=== PATIENT | male | born 1995 | race African-American/Black ===

== ENCOUNTER 2016-11-29 17:31 | Emergency (ER) | payer MEDICAID ==
[~2016-11-29] VITALS: Ht 175.3 cm; Wt 72.6 kg
[2016-11-29 17:38] VITALS: BP 118/75; PULSE 93; RESP 16; TEMP 98; O2SAT 98
--- NOTE | 2016-11-29 17:43 | NUR ---
Patient triaged and placed in waiting room. VSS Patient appears in no acute distress at this time. Accompanied by MOM, awaiting available bed, and MD notified of need for MSE.
--- NOTE | 2016-11-29 20:05 | NUR ---
Patient to ER H1 for evaluation.
--- NOTE | 2016-11-29 20:05 | NUR ---
Note gal in ED - 11/29/16 at 2104 by [email or web address] Patient to ER H1 for evaluation. Side rails up.
[2016-11-29] MEDS ORDERED: cefTRIAXone 1 GM VIAL IM ONE (20:45)
[2016-11-29 20:53] VITALS: BP 117/78; PULSE 90; RESP 17; TEMP 98; O2SAT 98
--- NOTE | 2016-11-29 20:53 | NUR ---
Patient given written and verbal discharge instructions by SUKUMAR Mills and verbalizes understanding. SUKUMAR Mills discussed with patient the results and treatment provided. ID arm band removed. Rx of Levaquin 500 mg given. Patient educated on pain management and to follow up with PMD. Pain Scale 5/10. Opportunity for questions provided and answered.
== END 2016-11-29 20:53 | disposition home or self-care (01) ==
LOC: SED 17:31
DX: J20.9 Acute bronchitis, unspecified (principal); T88.8XXA Other specified complications of surgical and medical care, not elsewhere classified, initial encounter
CPT/HCPCS: 71010; 99283

== ENCOUNTER 2017-08-18 09:24 | Emergency (ER) | payer MEDICAID, MEDICARE ==
[~2017-08-18] VITALS: Ht 172.7 cm; Wt 70.3 kg
[2017-08-18 09:30] VITALS: BP_SYST 100
[2017-08-18] MEDS ORDERED: NACL 0.9% 1,000 ML IV ONE (10:00)
[2017-08-18 10:03] LABS: BASOPHILS # (AUTO) 0.1 K/uL (0.0-0.2); BASOPHILS % (AUTO) 1.2 % (0.0-2.0); EOSINOPHILS # (AUTO) 0.4 K/uL (0.0-0.4); EOSINOPHILS % (AUTO) 5.7 % (0.0-4.0); HEMATOCRIT 45.8 % (36-54); HEMOGLOBIN 14.8 g/dL (14.0-18.0); LYMPHOCYTES # (AUTO) 1.8 K/uL (1.0-5.5); LYMPHOCYTES % (AUTO) 23.5 % (20.5-51.5); MEAN CORPUSCULAR HEMOGLOBIN 29 pg (27-31); MEAN CORPUSCULAR HGB CONC 32 % (32-36); MEAN CORPUSCULAR VOLUME 89 fL (79.0-98.0); MONOCYTES # (AUTO) 0.4 K/uL (0.0-1.0); MONOCYTES % (AUTO) 5.8 % (1.7-9.3); NEUTROPHILS % (AUTO) 63.8 % (40.0-70.0); PLATELET COUNT (AUTO) 273 K/uL (130-430); RED BLOOD CELL COUNT(AUTO) 5.17 MIL/uL (4.2-6.2); RED CELL DISTRIBUTION WIDTH 12.2 % (9.0-15.0); WHITE BLOOD COUNT (AUTO) 7.7 K/uL (4.8-10.8)
[2017-08-18 10:09] LABS: BILIRUBIN,URINE NEGATIVE (NEGATIVE); BLOOD, URINE NEGATIVE (NEGATIVE); CLARITY/URINE CLEAR (CLEAR); COLOR,URINE YELLOW (YELLOW); GLUCOSE,URINE NEGATIVE (NEGATIVE); KETONES,URINE NEGATIVE (NEGATIVE); LEUKOCYTE ESTERASE ,URINE NEGATIVE (NEGATIVE); NITRITE, URINE NEGATIVE (NEGATIVE); PH,URINE 5.5 (5.0-8.0); PROTEIN URINE NEGATIVE (NEGATIVE); UROBILINOGEN,URINE 0.2 (0.2-1.0)
[2017-08-18 10:16] LABS: ANION GAP 7 (5-15); CALCIUM 9.2 mg/dL (8.4-11.0); CHLORIDE 100 mmol/L (98-107); CREATININE 1.07 mg/dL (0.55-1.30); GFR AFRICAN AMERICAN 112 mL/min (>90); GLUCOSE 72 mg/dL (70-99); POTASSIUM 3.9 mmol/L (3.5-5.1); SODIUM SERUM 137 mmol/L (136-145); UREA NITROGEN, BLOOD 21 mg/dL (8-21)
[2017-08-18 10:20] LABS: ALANINE AMINOTRANSFERASE 37 U/L (12-78); ALBUMIN 4.4 g/dL (3.4-4.8); ALCOHOL, BLOOD < 3 mg/dL (<10); ASPARTATE AMINOTRANSFERASE 40 U/L (10-37); TOTAL BILIRUBIN 1.1 mg/dL (0.0-1.0)
[2017-08-18 10:33] LABS: CANNABINOID, URINE POSITIVE (NEG <=50)
[2017-08-18 10:34] LABS: COCAINE, URINE POSITIVE (NEG <=150); METHAMPHETAMINES SCREEN,URINE POSITIVE (NEG <=500); URINE AMPHETAMINE POSITIVE (NEG <=500)
[2017-08-18 10:35] LABS: BARBITURATE, URINE NEGATIVE (NEG <=200); BENZODIAZEPINE, URINE NEGATIVE (NEG <=150); OPIATE, URINE NEGATIVE (NEG <=100); PHENCYCLIDINE SCREEN,URINE NEGATIVE (NEG <=25); UR TRICYCLIC ANTIDEPRESSANTS NEGATIVE (NEG <=300); URINE METHADONE NEGATIVE (NEG <=200); URINE OXYCODONE SCREEN NEGATIVE (NEG <=100); URINE PROPOXYPHENE SCREEN NEGATIVE (NEG <=300)
[2017-08-18 11:14] VITALS: BP_SYST 107
== END 2017-08-18 11:14 | disposition home or self-care (01) ==
LOC: SED 09:24
DX: R07.89 Other chest pain (principal); E86.0 Dehydration
CPT/HCPCS: 36415; 71020; 80053; 80307; 81003; 84484; 85025; 93005; 96360; 99285; G0482; J7030

== ENCOUNTER 2018-08-18 07:24 | Emergency (ER) | payer MEDICARE ==
[~2018-08-18] VITALS: Ht 175.3 cm; Wt 77.1 kg
[2018-08-18 07:31] VITALS: BP_SYST 136
[2018-08-18 08:11] VITALS: BP_SYST 130
== END 2018-08-18 08:11 | disposition home or self-care (01) ==
LOC: SED 07:24
DX: H02.842 Edema of right lower eyelid (principal)
CPT/HCPCS: 99283

== ENCOUNTER 2019-09-01 09:23 | Emergency (ER) | payer MEDICAID ==
[~2019-09-01] VITALS: Ht 172.7 cm; Wt 90.7 kg
[2019-09-01 09:30] VITALS: BP_SYST 119
--- NOTE | 2019-09-01 09:30 | NUR ---
Pt ambulated to bed 7
--- NOTE | 2019-09-01 09:39 | NUR ---
ER at bedside examining patient.
--- NOTE | 2019-09-01 09:39 | NUR ---
Patent arrived in the ED c/o bodyaches, stuffy nose, diarrhea, blurry vision and cough that started a couple of days ago - Not taking any OTC meds to relieve the symptoms. Patient is alert and oriented x4, respirations even and unlabored, speaking in full sentences, ambulating with a steady gait. VS WNL, pain level 7/10. Informed of the wait time. Instructed to notify ED staff for any changes in condition or worsening of symptoms while waiting to be seen by the provider. Patient verbalized understanding.
[2019-09-01] MEDS ORDERED: KETOROLAC TROMETHAMINE 60 MG/2 ML VIAL IM ONE (09:45)
--- NOTE | 2019-09-01 09:49 | NUR ---
Administered Toradol 60mg IM in left ventrogluteal as ordered by Dr. Bryant. Patient tolerated the medication well.
--- NOTE | 2019-09-01 10:40 | NUR ---
Patient given written and verbal discharge instructions and verbalizes understanding. ER MD discussed with patient the results and treatment provided. Patient in stable condition. ID arm band removed. Rx of Cephacol, Zyrtec and Tamiflu given. Patient educated on pain management and to follow up with PMD. Pain Scale 3/10. Opportunity for questions provided and answered. Medication side effect fact sheet provided.
[2019-09-01 10:41] VITALS: BP_SYST 119
== END 2019-09-01 10:40 | disposition home or self-care (01) ==
LOC: SED 09:23
DX: B34.9 Viral infection, unspecified (principal)
CPT/HCPCS: 96372; 99283; J1885

== ENCOUNTER 2019-09-15 07:57 | Emergency (ER) | payer MEDICAID ==
[~2019-09-15] VITALS: Ht 175.3 cm; Wt 63.5 kg
--- NOTE | 2019-09-15 08:02 | NUR ---
Patient to ER bed 07 to gown for evaluation. Side rails up.
[2019-09-15 08:08] VITALS: BP_SYST 138
--- NOTE | 2019-09-15 08:10 | NUR ---
ER Dr. Ordoñez at bedside examining patient.
[2019-09-15] MEDS ORDERED: IBUPROFEN 800 MG TABLET PO ONE (08:30)
--- NOTE | 2019-09-15 08:52 | NUR ---
Patient is awake, alert, and oriented x4. Patient states he was drinking last night, jumped down some stairs, landed on his feet, his right foot started hurting. Patient presents with right heel pain 8/10, made worse when trying to ambulate.
[2019-09-15 09:55] VITALS: BP_SYST 138
--- NOTE | 2019-09-15 09:57 | NUR ---
Patient given written and verbal discharge instructions and verbalizes understanding. ER MD discussed with patient the results and treatment provided. Patient in stable condition. ID arm band removed. Rx of Tylenol with codeine and Ibuprofen given. Patient educated on pain management and to follow up with PMD. Pain Scale 2/10 tolerable for patient . Opportunity for questions provided and answered. Medication side effect fact sheet provided.
== END 2019-09-15 09:55 | disposition home or self-care (01) ==
LOC: SED 07:57
DX: S93.601A Unspecified sprain of right foot, initial encounter (principal); X50.1XXA Overexertion from prolonged static or awkward postures, initial encounter; Y93.39 Activity, other involving climbing, rappelling and jumping off; Y92.59 Other trade areas as the place of occurrence of the external cause; Y99.8 Other external cause status
CPT/HCPCS: 99283

== ENCOUNTER 2019-10-08 11:31 | Emergency (ER) | payer MEDICAID ==
[~2019-10-08] VITALS: Ht 175.3 cm; Wt 81.6 kg
[2019-10-08 12:01] VITALS: BP_SYST 127
[2019-10-08 12:10] VITALS: BP_SYST 127
--- NOTE | 2019-10-08 12:46 | NUR ---
Patient left without being seen.
== END 2019-10-08 12:46 | disposition left against medical advice (07) ==
LOC: SED 11:31
DX: J11.1 Influenza due to unidentified influenza virus with other respiratory manifestations (principal); Z53.21 Procedure and treatment not carried out due to patient leaving prior to being seen by health care provider
CPT/HCPCS: 36415; 86710

== ENCOUNTER 2020-12-14 08:33 | Emergency (ER) | payer MEDICAID ==
[~2020-12-14] VITALS: Ht 172.7 cm; Wt 90.7 kg
[2020-12-14 08:44] VITALS: BP_SYST 128
--- NOTE | 2020-12-14 08:44 | NUR ---
Patient to ER bed 4 to gown for evaluation. Side rails up. Report given to SETH oDoley.
--- NOTE | 2020-12-14 08:45 | NUR ---
Pt arrived to ED with complaints of right flank pain that radiates pain is 10/10. Pt states that he uses cocain and last time used was "late last night". Pt able to ambulate to room without SOB, or distress.
--- NOTE | 2020-12-14 08:50 | NUR ---
ER at bedside examining patient.
--- NOTE | 2020-12-14 09:02 | NUR ---
XRAY Pt off unit to XRAY
[2020-12-14] MEDS ORDERED: NAPR-688 PO (09:27)
[2020-12-14] MEDS ORDERED: OXYM-35 NS (09:27)
[2020-12-14 09:45] VITALS: BP_SYST 118
--- NOTE | 2020-12-14 09:45 | NUR ---
Patient given written and verbal discharge instructions and verbalizes understanding. ER MD discussed with patient the results and treatment provided. Patient in stable condition. ID arm band removed. Rx of naproxen,oxymetazoline given. Patient educated on pain management and to follow up with PMD. Pain Scale 0/10. Opportunity for questions provided and answered. Medication side effect fact sheet provided.
== END 2020-12-14 09:45 | disposition home or self-care (01) ==
LOC: SED 08:33
DX: S29.012A Strain of muscle and tendon of back wall of thorax, initial encounter (principal); F14.10 Cocaine abuse, uncomplicated; X58.XXXA Exposure to other specified factors, initial encounter; Y93.89 Activity, other specified; Y92.89 Other specified places as the place of occurrence of the external cause; Y99.8 Other external cause status
CPT/HCPCS: 71045; 99283

== ENCOUNTER 2021-01-03 13:14 | Emergency (ER) | payer MEDICAID ==
[~2021-01-03] VITALS: Ht 172.7 cm; Wt 83.9 kg
[~2021-01-03 13:14] MED LIST: NAPR-688 PO; OXYM-35 NS
[2021-01-03 13:30] VITALS: BP_SYST 155
[2021-01-03 15:50] VITALS: BP_SYST 122
== END 2021-01-03 15:50 | disposition home or self-care (01) ==
LOC: SED 13:14
DX: F14.129 Cocaine abuse with intoxication, unspecified (principal)
CPT/HCPCS: 99281

== ENCOUNTER 2022-07-26 09:27 | Emergency (ER) | payer MEDICAID ==
[~2022-07-26] VITALS: Ht 172.7 cm; Wt 90.7 kg
[2022-07-26 09:27] VITALS: BP_SYST 119
[2022-07-26] MEDS ORDERED: IBUPROFEN 800 MG TABLET PO ONE (10:00)
[2022-07-26] MEDS ORDERED: ONDANSETRON 4 MG ODT TAB PO ONE (10:00)
[2022-07-26 10:09] LABS: BASOPHILS # (AUTO) 0.1 K/uL (0.0-0.2); BASOPHILS % (AUTO) 0.9 % (0.0-2.0); EOSINOPHILS # (AUTO) 0.1 K/uL (0.0-0.4); EOSINOPHILS % (AUTO) 1.3 % (0.0-4.0); HEMATOCRIT 40.6 % (36-54); HEMOGLOBIN 13.9 g/dL (14.0-18.0); LYMPHOCYTES # (AUTO) 1.9 K/uL (1.0-5.5); LYMPHOCYTES % (AUTO) 18.1 % (20.5-51.5); MEAN CORPUSCULAR HEMOGLOBIN 30 pg (27-31); MEAN CORPUSCULAR HGB CONC 34 % (32-36); MEAN CORPUSCULAR VOLUME 87 fL (79.0-98.0); MONOCYTES # (AUTO) 0.5 K/uL (0.0-1.0); MONOCYTES % (AUTO) 5.2 % (1.7-9.3); NEUTROPHILS # (AUTO) 7.9 K/uL (1.8-7.7); NEUTROPHILS % (AUTO) 74.5 % (40.0-70.0); PLATELET COUNT (AUTO) 302 K/uL (130-430); RED BLOOD CELL COUNT(AUTO) 4.67 MIL/uL (4.2-6.2); RED CELL DISTRIBUTION WIDTH 13.8 % (9.0-15.0); WHITE BLOOD COUNT (AUTO) 10.6 K/uL (4.8-10.8)
[2022-07-26 10:27] LABS: ANION GAP 5 (5-15); CALCIUM 8.5 mg/dL (8.4-11.0); CHLORIDE 107 mmol/L (98-107); CREATININE 1.15 mg/dL (0.55-1.30); GLUCOSE 92 mg/dL (70-99); POTASSIUM 3.9 mmol/L (3.5-5.1); UREA NITROGEN, BLOOD 16 mg/dL (8-21)
[2022-07-26 10:31] LABS: ALANINE AMINOTRANSFERASE 28 U/L (12-78); ASPARTATE AMINOTRANSFERASE 23 U/L (10-37); TOTAL BILIRUBIN 0.5 mg/dL (0.0-1.0)
[2022-07-26 10:32] LABS: C-REACTIVE PROTEIN QUANT < 0.2 mg/dL (0-0.5); GFR AFRICAN AMERICAN 99 mL/min (>90)
[2022-07-26] MEDS ORDERED: ONDA-8 TL (11:47)
[2022-07-26] MEDS ORDERED: IBUP-1969 PO (11:47)
[2022-07-26 12:32] VITALS: BP_SYST 121
== END 2022-07-26 12:34 | disposition home or self-care (01) ==
LOC: SED 09:27
DX: R51.9 Headache, unspecified (principal); R11.2 Nausea with vomiting, unspecified; Z79.899 Other long term (current) drug therapy
CPT/HCPCS: 99284; 70450; 80053; 85025; 86140; 36415; 76376; Q0162

== ENCOUNTER 2022-08-09 12:48 | Emergency (ER) | payer MEDICAID ==
[~2022-08-09] VITALS: Ht 175.3 cm; Wt 78.0 kg
[~2022-08-09 12:48] MED LIST changes: +IBUP-1969 PO; +ONDA-8 TL
[2022-08-09 13:03] VITALS: BP_SYST 125
--- NOTE | 2022-08-09 13:30 | NUR ---
Pt brought by self, A&Ox4, pt presents to ER with pain on L side of the face after heavy roll hit him at work, no open wounds noted, will cont to monitor.
--- NOTE | 2022-08-09 14:00 | NUR ---
LWBS 1400
== END 2022-08-09 14:00 | disposition left against medical advice (07) ==
LOC: SED 12:48
DX: R51.9 Headache, unspecified (principal); Z53.21 Procedure and treatment not carried out due to patient leaving prior to being seen by health care provider

== ENCOUNTER 2023-04-23 11:38 | Emergency (ER) | payer MEDICAID ==
[~2023-04-23] VITALS: Ht 172.7 cm; Wt 86.2 kg
[2023-04-23 11:40] VITALS: BP_SYST 97; PULSE 71; RESP 18; TEMP 97.6; O2SAT 98
[2023-04-23] MEDS ORDERED: PENI500T PO (15:30)
[2023-04-23] MEDS ORDERED: IBUP-1971 PO (15:30)
[2023-04-23] MEDS ORDERED: IBUPROFEN 800 MG TABLET PO ONE (15:45)
[2023-04-23 15:53] VITALS: BP_SYST 119; PULSE 81; RESP 18; TEMP 97; O2SAT 99
== END 2023-04-23 15:53 | disposition home or self-care (01) ==
LOC: SED 11:38
DX: K04.7 Periapical abscess without sinus (principal); K08.89 Other specified disorders of teeth and supporting structures; R20.0 Anesthesia of skin; F12.90 Cannabis use, unspecified, uncomplicated; Z79.899 Other long term (current) drug therapy
CPT/HCPCS: 99283

== ENCOUNTER 2023-05-06 03:35 | Emergency (ER) | payer MEDICAID ==
[~2023-05-06] VITALS: Ht 172.7 cm; Wt 81.6 kg
[~2023-05-06 03:35] MED LIST changes: +IBUP-1971 PO; +PENI500T PO
[2023-05-06 03:42] VITALS: BP_SYST 137; PULSE 99; RESP 21; TEMP 97.9; O2SAT 100
[2023-05-06] MEDS ORDERED: VIS25 PO (04:04)
[2023-05-06] MEDS ORDERED: NACL 0.9% 1,000 ML IV ONE (04:30)
[2023-05-06 05:31] VITALS: BP_SYST 115; PULSE 89; RESP 15; O2SAT 97
== END 2023-05-06 05:30 | disposition home or self-care (01) ==
LOC: SED 03:35
DX: R06.02 Shortness of breath (principal); R07.9 Chest pain, unspecified; F14.90 Cocaine use, unspecified, uncomplicated; F41.9 Anxiety disorder, unspecified; F12.90 Cannabis use, unspecified, uncomplicated; Z79.899 Other long term (current) drug therapy
CPT/HCPCS: 99283; 96360; 71045; J7030; 93005